=== PATIENT | female | born 1945 | race African-American/Black ===

== ENCOUNTER 2016-08-15 05:49 | Inpatient (IN) | payer BC, OTHER ==
[2016-08-02 14:12] LABS: INTERNATIONAL NORMAL RATI 1.1 UNITS (-); PROTIME (NOT ORD) 13.6 SEC (12.0-14.5)
[2016-08-02 14:13] LABS: BASOPHILS 0.5 %; BASOPHILS ABSOLUTE 0.05 10/3/uL (0.0-0.16); EOSINOPHILS 7.4 %; EOSINOPHILS ABSOLUTE 0.74 10/3/uL (0.0-0.53); HEMATOCRIT 40.9 % (36.0-48.0); IMMATURE GRANULOCYTES 0.2 %; IMMATURE GRANULOCYTES ABSOLUTE 0.02 10/3/uL (0.0-0.11); LYMPHOCYTES 28.1 %; MEAN CORPUS HGB CONC 34.2 g/dL (32.0-36.0); MEAN CORPUSCULAR HEMOGLOB 30.6 pg (26.0-34.0); MEAN CORPUSCULAR VOLUME 89.3 fL (80-100); MEAN PLATELET VOLUME 8.9 fL (9.2-13.0); MONOCYTES 6.3 %; MONOCYTES ABSOLUTE 0.63 10/3/uL (0.21-1.20); NEUTROPHILS 57.5 %; NEUTROPHILS ABSOLUTE 5.72 10/3/uL (2.02-8.40); PLATELET COUNT 300 10/3/uL (150-400); RBC DISTRIBUTION WIDTH 14.1 % (12.0-16.0); RED CELL COUNT 4.58 10/6/uL (4.0-5.6)
[2016-08-02 14:14] LABS: MANUAL DIFF NO %
[2016-08-02 14:16] LABS: A/G RATIO 0.8 (0.7-1.9); ALBUMIN 3.9 G/DL (3.5-5.0); ALKALINE PHOSPHATASE 81 U/L (45-117); CALCIUM, SERUM 8.9 MG/DL (8.5-10.4); CHLORIDE, SERUM 106 MMOL/L (96-112); CO2 (CARBON DIOXIDE) 27 MMOL/L (24-34); CREATININE 0.89 MG/DL (0.55-1.02); GFR AFRICAN AMERICAN 75 ML/MIN (>=60); GFR NON AFRICAN AMERICAN 65 ML/MIN (>=60); GLOBULIN 4.7 G/DL (2.5-4.1); GLUCOSE, SERUM 86 MG/DL (60-99); POTASSIUM, SERUM 3.5 MMOL/L (3.5-5.3); SGOT(AST) 20 U/L (5-40); SGPT(ALT) 18 U/L (5-65); SODIUM, SERUM 140 MMOL/L (135-148); TOTAL BILIRUBIN 0.4 MG/DL (0-1.2); TOTAL PROTEIN 8.6 G/DL (6.0-8.5)
[2016-08-02 14:17] LABS: BUN (BLOOD UREA NITROGEN) 15 MG/DL (6-23)
[2016-08-02 14:38] LABS: ASCORBIC ACID (UR NOT ORDER) NEG (NEG); BILIRUBIN, URINE NEGATIVE (NEG); KETONE, URINE NEGATIVE (NEG); LEUKOCYTE ESTERASE(NOT OR NEG (NEG); WBC (NOT ORDERED) (RFLEX) 1 (0-5)
--- NOTE | ~2016-08-15 | OP ---
Record Of Operation [facility] [address] [place]. [address] NAME: ELVIS SOLOMON : 41 STATUS : ADM IN PAT#: [id number] AGE: 70 ADM/REG DATE : 08/15/16 MR#: [id number] REPORT SERV DATE: 08/16/16 DICTATED BY: NITHIN FAITH DATE: 08/16/16 REPORT STATUS : Draft TRANSCRIBED BY: MODAdriana DATE: 08/16/16 DATE OF PROCEDURE: 08/15/2016 PREOPERATIVE DIAGNOSIS: Severe bilateral knee degenerative joint disease. POSTOPERATIVE DIAGNOSIS: Severe bilateral knee degenerative joint disease. OPERATION: Bilateral posterior stabilized total knee replacement, cemented. SIDE: Right and left. SIZE: See chart. ANESTHESIA: See chart. ESTIMATED BLOOD LOSS: About 10 mL in each knee. TOURNIQUET TIME: Approximately 1 hour and 10 minutes. COMPLICATIONS: None. SPECIMENS: Articular surfaces. PROCEDURE: The patient was appropriately identified and marked. The operative side agreed with the consent form and it was checked by all members of the surgical team. The patient was taken to the operating room and anesthesia was induced per the anesthesiologist. The patient was carefully transferred to the operating table without incident. The patient received appropriate prophylactic antibiotics and a Larson catheter was placed in the standard sterile technique. The patient was then carefully positioned, padded, prepped and draped in the normal sterile fashion. The operative leg had been appropriately identified and checked by all members of the operating team against the consent form and found to be the correct limb. The patient's lower extremity was then exsanguinated with an Jarett wrap and a tourniquet was inflated to 350 mmHg. Sharp dissection was carried out through a straight midline longitudinal incision and electrocautery through the fat. Sharp quad splitting approach was carried out between about the medial 10 percent of the tendon and the lateral 90 percent of the tendon and down around the medial aspect of the patella and then 1 cm medial to the tibial tubercle. The patella was carefully everted and the posterior fat pad was excised and gentle MCL elevation was carried out off the proximal medial tibia subperiosteally. IM guide was placed in the distal femur after using the appropriate drill. The distal femoral cutting guide was held with 2 pins and the distal cut made. Meniscal fragments and the ACL and the PCL were excised with electrocautery, carefully staying anterior to the posterior fat pad. The proximal tibial alignment guide was set appropriately and the proximal tibial cut made. Spacer block verified full extension with excellent mediolateral balance. Sizing guide was used to place 2 drill holes in the distal femur and the four-in-one cutting block was then placed, impacted and checked Record Of Operation [facility] [address] [place]. [address] NAME: ELVIS SOLOMON : 43 STATUS : ADM IN PAT#: [id number] AGE: 70 ADM/REG DATE : 08/15/16 MR#: [id number] REPORT SERV DATE: 08/16/16 DICTATED BY: NITHIN FAITH DATE: 08/16/16 REPORT STATUS : Draft TRANSCRIBED BY: ALDA DATE: 08/16/16 to be sure it would not notch with an emma wing and it was held with 2 pins. The anterior cut, posterior cut, anterior chamfer and posterior chamfer cuts were made. The pins were removed and the block was removed. A posterior release was carried out with a curved 3/4 inch osteotome staying right on the bone posteriorly. The box-cut guide was then placed, impacted and held with 2 pins and a reciprocating saw was used to cut out the box. With the trial components in place, there was excellent medial/lateral balance. The patella was then measured with a caliper, cut first with an oscillating saw and then reamed with a patella reamer. With the trial patella in place, there was excellent patellar tracking. Rotation was marked on the tibia and the tibia prepared with a drill and stamp chisel. All surfaces were then copiously irrigated with pulsatile lavage, carefully dried and then vacuum-mixed cement was pressurized with a cement gun in a doughy phase. The tibial component was placed, impacted and excess cement was removed. The cement was then pressurized in the femur and placed on the posterior runners of the femoral component, which was placed, impacted and excess cement removed and the knee was brought out into extension on a trial spacer. The cement was then pressurized in the patella. Patellar component was then placed, clamped and excess cement was removed. Once all cement was hardened, the knee was taken through range of motion. Further extruded cement was removed with a small osteotome. Then based on the trial inserts, we decided on the actual insert, which was placed in the standard fashion and held with a locking mechanism. The knee was then copiously irrigated and then closed in a layered fashion over a medium Hemovac drain superolaterally with interrupted #1 in the deep fascia, 2-0 subcutaneous and ren in the skin. The wounds were dressed sterilely and the tourniquet was deflated. After completion of the first knee and discussion with the anesthesiologist, all parameters were acceptable and we decided to proceed with the second knee. Same procedure as that dictated above was carried out on the contralateral knee. The contralateral leg was again appropriately identified and checked by all members of the operating team against the consent form and found to be the correct limb. The patient's lower extremity was then exsanguinated with an Jarett wrap and a tourniquet was inflated to 350 mmHg. Sharp dissection was carried out through a straight midline longitudinal incision and electrocautery through the fat. Sharp quad splitting approach was carried out between about the medial 10 percent of the tendon and the lateral 90 percent of the tendon and down around the medial aspect of the patella and then 1 cm medial to the tibial tubercle. The patella was carefully everted and the posterior fat pad was excised and gentle MCL elevation was carried out off the proximal medial tibia subperiosteally. IM guide was placed in the distal femur after using the appropriate drill. The distal femoral cutting guide was held with 2 pins and the distal cut made. Meniscal fragments and the ACL and the PCL were excised with electrocautery, carefully staying anterior to the posterior fat pad. The proximal tibial alignment guide was set appropriately and the proximal tibial cut made. Spacer block verified full extension with excellent mediolateral balance. Sizing guide was used to place 2 drill holes in the distal femur and the four-in-one cutting block was then placed, impacted and checked to be sure it would not notch with an emma wing and it was held with 2 pins. The anterior cut, posterior cut, anterior chamfer and posterior chamfer cuts were made. The pins were removed and the block was removed. A posterior release was carried out with a curved 3/4 inch osteotome staying right on the bone posteriorly. The box cut guide was then placed, impacted and held with 2 pins and a reciprocating saw was used to Record Of Operation [address] [place]. [address] NAME: ELVIS SOLOMON : 41 STATUS : ADM IN PAT#: [id number] AGE: 70 ADM/REG DATE : 08/15/16 MR#: [id number] REPORT SERV DATE: 08/16/16 DICTATED BY: NITHIN FAITH DATE: 08/16/16 REPORT STATUS : Draft TRANSCRIBED BY: MODAdriana DATE: 08/16/16 cut out the box. With the trial components in place, there was excellent medial/lateral balance. The patella was then measured with a caliper, cut first with an oscillating saw and then reamed with a patella reamer. With the trial patella in place, there was excellent patellar tracking. Rotation was marked on the tibia and the tibia prepared with a drill and stamp chisel. All surfaces were then copiously irrigated with pulsatile lavage, carefully dried and then vacuum-mixed cement was pressurized with a cement gun in a doughy phase. The tibial component was placed, impacted and excess cement was removed. The cement was then pressurized in the femur and placed on the posterior runners of the femoral component, which was placed, impacted and excess cement removed and the knee was brought out into extension on a trial spacer. The cement was then pressurized in the patella. Patellar component was then placed, clamped and excess cement was removed. Once all cement was hardened, the knee was taken through range of motion. Further extruded cement was removed with a small osteotome. Then based on the trial inserts, we decided on the actual insert, which was placed in the standard fashion and held with a locking mechanism. The knee was then copiously irrigated and then closed in a layered fashion over a medium Hemovac drain superolaterally with interrupted #1 in the deep fascia, 2-0 subcutaneous and ren in the skin. The wounds were dressed sterilely and the tourniquet was deflated. The patient was then awakened and taken to the postanesthesia care unit without incident. All counts were correct at the end of the case. WTB/MODL Eladio Faith M.D. / [id number] CC: Eladio Faith M.D. Hannah Madrid M.D.
--- NOTE | ~2016-08-15 | CN ---
Consultation Report [facility] [address] [place]. [address] NAME: ELVIS SOLOMON : 41 STATUS : ADM IN [facility]#: [id number] AGE: 70 ADM/REG DATE : 08/15/16 MR#: [id number] REPORT SERV DATE: 08/20/16 DICTATED BY: KATELYN WILLAMS DATE: 08/20/16 REPORT STATUS : Draft TRANSCRIBED BY: ALDA DATE: 08/20/16 NEUROLOGY CONSULTATION DATE OF CONSULTATION: 08/20/2016 REASON FOR CONSULTATION: Stroke. HISTORY: A 70-year-old -[place] female with an apparent history of hypertension, reflux, anxiety, sarcoidosis, osteoarthritis, who was admitted for scheduled bilateral knee replacement. The patient had a scheduled procedure on 08/15/2016 without complications. She has suffered from anxiety in the postoperative period and this evening apparently was using the commode and had a vagal type reaction and almost passed out. She then apparently became tearful and could not speak. She had a difficult time getting her words out and many of the words she made were unintelligible. She had a global weakness with no focal symptoms. There was no seizure activity, complaints of headache or vision changes. Head CT with CTA were performed, which were negative. We are consulted for further evaluation. PAST MEDICAL HISTORY: Osteoarthritis, history of sarcoidosis, reflux, hypertension, anxiety, depression, questionable history of stroke, and history of conversion reaction seen by Dr. Julien with similar symptoms. PAST SURGICAL HISTORY: Status post appendectomy, status post D and C, status post hysterectomy, and status post tubal ligation. MEDICATIONS: Listed on chart include Coumadin and aspirin here in the postoperative period. ALLERGIES: HYDROCODONE. FAMILY HISTORY: Brother with diabetes. Mother with heart disease. Father with hypertension. SOCIAL HISTORY: No tobacco use or illicit drug use. She drinks alcohol sparingly. REVIEW OF SYSTEMS: As above with complaints of knee pain. All other systems negative per chart review and per the patient responses. PHYSICAL EXAMINATION: VITAL SIGNS: Blood pressure 142/67, heart rate 96, respirations 20, temperature is 98.1, oxygen saturation 99%. GENERAL: Well-nourished, well-developed -[place] female, who appears tearful and anxious. NECK: Supple with no bruits. HEART: Regular. LUNGS: Clear to auscultation. Consultation Report [facility] [address] [place]. [address] NAME: ELVIS SOLOMON : 41 STATUS : ADM IN PAT#: [id number] AGE: 70 ADM/REG DATE : 08/15/16 MR#: [id number] REPORT SERV DATE: 08/20/16 DICTATED BY: KATELYN WILLAMS DATE: 08/20/16 REPORT STATUS : Draft TRANSCRIBED BY: ALDA DATE: 08/20/16 ABDOMEN: Benign with normoactive bowel sounds. EXTREMITIES: Revealed mild edema distally in the lower extremities, the patient is status post bilateral knee replacement. NEUROLOGIC EXAMINATION: MENTAL STATUS: The patient is awake and alert. She follows most simple commands. Sometimes there is a delay. Her speech is dysarthric, at times seemed unintelligible and at times her language is intelligible. She is able to repeat simple phrases. CRANIAL NERVES: Visual campos are full. Eye movements are full without nystagmus. No facial asymmetry. No tongue deviation. Corneals and gag intact. Funduscopic examination reveals sharp discs. MOTOR EXAM: She moves all extremities without asymmetry. There was no pronator drift. She could not completely perform power testing on a regular basis, but there was no npof-io-egiy asymmetry. She is able to raise both of her legs and dorsiflex her ankles without asymmetry. Diagnostics Tech is equal bilaterally, and again there was no pronator drift. Reflexes 2+ in the upper extremities, knees trace, ankles trace. Toes downgoing. Shelton's and tremor signs negative. SENSORY EXAM: Withdraws all four extremities without asymmetry. COORDINATION: Slow rapid alternating movements with avyjqu-vcgf-pqnuad. GAIT: Not tested. STUDIES: Head CT performed revealed no acute intracranial abnormalities. CTA of carotids and brain were negative. IMPRESSION: Episode of variable speech/language impairment of unclear etiology. I suspect that this may represent a conversion reaction. There is at least some significant nonphysiologic overlap. Differential diagnosis includes acute stroke. PLAN: 1. Continue aspirin and Coumadin. 2. I discussed extensively with the Hospitalist Service. The patient is not a candidate for tPA as there is no large vessel disease. The patient is status post bilateral knee replacement and is already on aspirin and Coumadin with an INR of 2. Additionally, this appears to be nonphysiologic in nature. 3. Check an MRI of the brain in the morning. 4. Close neurologic checks. 5. Further stroke workup if MRI positive. 6. Treat anxiety appropriately. 7. Neuro and hospitalist to follow. Thank you again for your confidence and referral. Time spent with this patient was over 1 hour. Consultation Report [facility] [address] [place]. [address] NAME: ELVIS SOLOMON : 41 STATUS : ADM IN PAT#: [id number] AGE: 70 ADM/REG DATE : 08/15/16 MR#: [id number] REPORT SERV DATE: 08/20/16 DICTATED BY: KATELYN WILLAMS DATE: 08/20/16 REPORT STATUS : Draft TRANSCRIBED BY: ALDA DATE: 08/20/16 YARON/ALDA Katelyn Willams M.D. Diplomate [place] [employer] of Sleep Medicine and Neurology / [id number] CC: Karli Whiteside M.D.
--- NOTE | ~2016-08-15 | DS ---
Discharge Summary [facility] [address] [place]. [address] NAME: ELVIS SOLOMON : 41 STATUS : DIS IN PAT#: [id number] AGE: 70 ADM/REG DATE : 08/15/16 MR#: [id number] REPORT SERV DATE: 08/31/16 DICTATED BY: NITHIN FAITH DATE: 08/30/16 REPORT STATUS : Draft TRANSCRIBED BY: MODAdriana DATE: 08/30/16 Data Collection from hospitalization DISCHARGE DIAGNOSES: 1. Severe bilateral knee degenerative joint disease. 2. Hypertension. 3. Osteoarthritis. 4. History of sarcoidosis. 5. Reflux. 6. Anxiety and depression. 7. Gastroesophageal reflux disease. 8. History of cerebrovascular accident. CONSULTATIONS: 1. Tripp Townsend M.D. 2. Manny Monroe MD. PROCEDURES PERFORMED: 1. Bilateral posterior stabilized total knee replacement, cemented, 08/15/2016. 2. CTA of the neck/brain - stroke protocol on 08/19/2016. 3. MRI of the brain on 08/21/2016. PATHOLOGY: Bone and soft tissue, right and left knee arthroplasty - degenerative changes, fatty bone marrow, papillary synovial hyperplasia. MEDICATIONS: Aspirin 81 mg daily, Colace 100 mg twice a day, ferrous sulfate 300 mg with breakfast and supper, Ativan 0.5 mg daily as needed, Theragran tablets one tablet with breakfast, Prilosec 40 mg twice a day, MiraLAX powder one packet daily, Altace 10 mg daily, Senokot two tablets at bedtime, Aldactone 25 mg daily, Desyrel 50 mg at bedtime, Coumadin 2.5 mg as instructed, Tylenol 650 mg every four hours as needed, Mylanta 30 mL as needed, Dulcolax 10-15 mg as needed, Dilaudid 2 mg every four hours as needed, milk of magnesia 30 mL as needed, Zofran 4 mg every four hours as needed, MiraLAX powder one packet twice a day as needed, Zantac 300 mg daily, and hydrochlorothiazide 12.5 mg daily. CONDITION AT DISCHARGE: Stable. DISPOSITION: The patient was discharged to [facility] on a full liquid diet with activities as instructed. HOSPITAL COURSE: This is a 70-year-old woman who has complained of yznfggif-fg-vcrjul constant bilateral hip pain. The patient also has severe bilateral knee degenerative joint disease. Treatment options were discussed and it was elected to proceed with surgical intervention. She was admitted to the hospital at this time for further evaluation and treatment. Upon admission, the patient was taken to the operating room where she underwent the above- mentioned procedure. She tolerated this well, and there were no complications. On postop day #1, she was evaluated by Occupational and Physical Therapy. She was in no acute Discharge Summary [address] [address] NAME: ELVIS SOLOMON : 41 STATUS : DIS IN PAT#: [id number] AGE: 70 ADM/REG DATE : 08/15/16 MR#: [id number] REPORT SERV DATE: 08/31/16 DICTATED BY: NITHIN FAITH DATE: 08/30/16 REPORT STATUS : Draft TRANSCRIBED BY: ALDA DATE: 08/30/16 distress. She was doing well. Blood pressure was controlled. She remained on ramipril and hydrochlorothiazide. Proton pump inhibitor was continued. Ativan was being given as needed for anxiety. Aspirin was continued. On 08/17/2016, she was up sitting in a bedside chair. She complained of dizziness with standing and walking. She did not want blood at the present time. MARSHAL hose were in place. On 08/18/2016, she has not had a bowel movement. She says that she has chronic constipation. She was encouraged to mobilize. Milk of magnesia and MiraLAX were provided. On 08/19/2016, she had undergone a KUB. She said that she had a good bowel movement after receiving an enema. She had increased anxiety and was tearful. We spoke with the patient about taking her Ativan. She continued to do well. She was seen by Dr. Manny Monroe. The patient had developed some stroke-like symptoms. The nurse was getting the patient up to the bedside commode when she became weak and presyncopal. When she was placed back in bed, she was noted to be weak, aphasic, and dysarthric. At the time of his exam, she had no focal deficits except for the dysarthria and aphasia. The patient has a history of a conversion disorder mimicking stroke-like symptoms. The patient was seen by Dr. Tripp Townsend. A CTA of the neck and brain-stroke protocol was performed. Apparently, the patient had become tearful and could not speak. She had a difficult time getting her words out and many of her words were unintelligible. She had global weakness with no focal symptoms. There was no seizure activity, complaints of headache or vision change. Head CT with CTA were negative. It was suspected that her symptoms may represent a conversion reaction. There is at least some significant nonphysiologic overlap. Differential diagnosis includes acute stroke. Aspirin and Coumadin were continued. The patient is not a candidate for tPA as there was no large vessel disease. This appeared to be nonphysiologic in nature. MRI of the brain was requested. Close neurologic checks would be performed. We would treat her anxiety appropriately. Blood pressure was stable. The patient was very emotional. An MRI of the brain was performed. There was no evidence of acute infarction or bleed. She did appear comfortable. Her dressings were clean, dry, and intact. The patient said she has had syncopal episodes since her knee surgery. She felt as if this was due to her nerves. White blood cell count was 15.5. Right hemiparesis was resolving. Aspirin and Coumadin were continued. A statin agent was added. Discharge instructions were given. Due to her improved and stable condition, she was discharged to [facility] with the above-stated instructions. Information collected by: Connie Venegas I submit the above information as my discharge summary. EDVIN/ALDA Eladio Faith M.D. / [id number] CC: Karli Whiteside M.D. Discharge Summary [address] [address] NAME: ELVIS SOLOMON : 41 STATUS : DIS IN PAT#: [id number] AGE: 70 ADM/REG DATE : 08/15/16 MR#: [id number] REPORT SERV DATE: 08/31/16 DICTATED BY: NITHIN FAITH DATE: 08/30/16 REPORT STATUS : Draft TRANSCRIBED BY: MODAdriana DATE: 08/30/16 [facility]. [facility]
[~2016-08-15 05:49] MED LIST: ALTACE10 MG PO; ASAB PO; ATV.5 PO; HYDROCHLOROT12.5 MG PO; MULTIPLE VITS; PRILOSEC40 MG PO; RANITIDINE300 MG PO; SPIRO25 PO; TRAZ50 PO
[2016-08-16 05:24] LABS: INTERNATIONAL NORMAL RATI 1.2 UNITS (-); PROTIME (NOT ORD) 14.6 SEC (12.0-14.5)
[2016-08-16 05:25] LABS: HEMATOCRIT 29.5 % (36.0-48.0); HEMOGLOBIN 10.2 g/dL (12.0-16.0)
[2016-08-16 05:29] LABS: BUN (BLOOD UREA NITROGEN) 16 MG/DL (6-23); CALCIUM, SERUM 9.2 MG/DL (8.5-10.4); CHLORIDE, SERUM 105 MMOL/L (96-112); CO2 (CARBON DIOXIDE) 28 MMOL/L (24-34); CREATININE 0.84 MG/DL (0.55-1.02); GFR AFRICAN AMERICAN 80 ML/MIN (>=60); GFR NON AFRICAN AMERICAN 69 ML/MIN (>=60); SODIUM, SERUM 141 MMOL/L (135-148)
[2016-08-16 05:30] LABS: GLUCOSE, SERUM 131 MG/DL (60-99); POTASSIUM, SERUM 4.5 MMOL/L (3.5-5.3)
[2016-08-17 03:47] LABS: HEMATOCRIT 24.2 % (36.0-48.0); HEMOGLOBIN 8.3 g/dL (12.0-16.0)
[2016-08-17 03:53] LABS: INTERNATIONAL NORMAL RATI 1.3 UNITS (-); PROTIME (NOT ORD) 16.2 SEC (12.0-14.5)
[2016-08-18 05:22] LABS: HEMATOCRIT 23.9 % (36.0-48.0); HEMOGLOBIN 8.2 g/dL (12.0-16.0)
[2016-08-18 05:29] LABS: INTERNATIONAL NORMAL RATI 1.6 UNITS (-)
[2016-08-18 05:32] LABS: PROTIME (NOT ORD) 18.8 SEC (12.0-14.5)
[2016-08-18 05:34] LABS: BUN (BLOOD UREA NITROGEN) 17 MG/DL (6-23); CALCIUM, SERUM 8.6 MG/DL (8.5-10.4); CHLORIDE, SERUM 105 MMOL/L (96-112); CO2 (CARBON DIOXIDE) 29 MMOL/L (24-34); CREATININE 0.82 MG/DL (0.55-1.02); GFR AFRICAN AMERICAN 83 ML/MIN (>=60); GFR NON AFRICAN AMERICAN 71 ML/MIN (>=60); GLUCOSE, SERUM 98 MG/DL (60-99); POTASSIUM, SERUM 4.3 MMOL/L (3.5-5.3); SODIUM, SERUM 140 MMOL/L (135-148)
[2016-08-19 05:28] LABS: INTERNATIONAL NORMAL RATI 1.8 UNITS (-); PROTIME (NOT ORD) 21.1 SEC (12.0-14.5)
[2016-08-20 00:04] LABS: BASOPHILS 0.2 %; BASOPHILS ABSOLUTE 0.04 10/3/uL (0.0-0.16); EOSINOPHILS 4.9 %; EOSINOPHILS ABSOLUTE 0.85 10/3/uL (0.0-0.53); HEMATOCRIT 25.1 % (36.0-48.0); HEMOGLOBIN 8.7 g/dL (12.0-16.0); IMMATURE GRANULOCYTES 0.5 %; IMMATURE GRANULOCYTES ABSOLUTE 0.09 10/3/uL (0.0-0.11); LYMPHOCYTES 25.5 %; LYMPHOCYTES ABSOLUTE 4.39 10/3/uL (0.67-4.30); MANUAL DIFF NO %; MEAN CORPUS HGB CONC 34.7 g/dL (32.0-36.0); MEAN CORPUSCULAR VOLUME 89.3 fL (80-100); MEAN PLATELET VOLUME 8.5 fL (9.2-13.0); MONOCYTES 9.2 %; MONOCYTES ABSOLUTE 1.59 10/3/uL (0.21-1.20); NEUTROPHILS 59.7 %; NEUTROPHILS ABSOLUTE 10.25 10/3/uL (2.02-8.40); PLATELET COUNT 334 10/3/uL (150-400); RBC DISTRIBUTION WIDTH 14.5 % (12.0-16.0); RED CELL COUNT 2.81 10/6/uL (4.0-5.6); WHITE BLOOD CELLS 17.2 10/3/uL (4.5-10.5)
[2016-08-20 00:14] LABS: PROTIME (NOT ORD) 22.7 SEC (12.0-14.5)
[2016-08-20 00:22] LABS: A/G RATIO 0.8 (0.7-1.9); ALBUMIN 3.1 G/DL (3.5-5.0); ALKALINE PHOSPHATASE 57 U/L (45-117); BUN (BLOOD UREA NITROGEN) 11 MG/DL (6-23); CALCIUM, SERUM 8.8 MG/DL (8.5-10.4); CHLORIDE, SERUM 100 MMOL/L (96-112); CO2 (CARBON DIOXIDE) 29 MMOL/L (24-34); CREATININE 0.71 MG/DL (0.55-1.02); GFR AFRICAN AMERICAN 99 ML/MIN (>=60); GFR NON AFRICAN AMERICAN 85 ML/MIN (>=60); GLOBULIN 3.8 G/DL (2.5-4.1); GLUCOSE, SERUM 139 MG/DL (60-99); POTASSIUM, SERUM 3.9 MMOL/L (3.5-5.3); SGOT(AST) 15 U/L (5-40); SGPT(ALT) 16 U/L (5-65); SODIUM, SERUM 135 MMOL/L (135-148); TOTAL BILIRUBIN 0.6 MG/DL (0-1.2); TOTAL PROTEIN 6.9 G/DL (6.0-8.5); TROPONIN I <0.02 NG/ML (<0.05)
[2016-08-20 06:26] LABS: PROTIME (NOT ORD) 22.7 SEC (12.0-14.5)
[2016-08-20 06:33] LABS: HEMATOCRIT 26.4 % (36.0-48.0); HEMOGLOBIN 8.9 g/dL (12.0-16.0)
[2016-08-21 06:18] LABS: BASOPHILS 0.2 %; BASOPHILS ABSOLUTE 0.03 10/3/uL (0.0-0.16); EOSINOPHILS 3.2 %; HEMOGLOBIN 8.6 g/dL (12.0-16.0); IMMATURE GRANULOCYTES 0.6 %; LYMPHOCYTES 24.7 %; LYMPHOCYTES ABSOLUTE 3.83 10/3/uL (0.67-4.30); MEAN CORPUS HGB CONC 33.1 g/dL (32.0-36.0); MEAN CORPUSCULAR HEMOGLOB 30.1 pg (26.0-34.0); MEAN CORPUSCULAR VOLUME 90.9 fL (80-100); MEAN PLATELET VOLUME 8.4 fL (9.2-13.0); MONOCYTES 10.6 %; MONOCYTES ABSOLUTE 1.64 10/3/uL (0.21-1.20); NEUTROPHILS 60.7 %; PLATELET COUNT 392 10/3/uL (150-400); RBC DISTRIBUTION WIDTH 14.9 % (12.0-16.0); RED CELL COUNT 2.86 10/6/uL (4.0-5.6); WHITE BLOOD CELLS 15.5 10/3/uL (4.5-10.5)
[2016-08-21 06:21] LABS: INTERNATIONAL NORMAL RATI 2.3 UNITS (-); PROTIME (NOT ORD) 25.4 SEC (12.0-14.5)
[2016-08-21 06:23] LABS: MANUAL DIFF NO %
[2016-08-21 06:35] LABS: BUN (BLOOD UREA NITROGEN) 9 MG/DL (6-23); CALCIUM, SERUM 9.2 MG/DL (8.5-10.4); CHLORIDE, SERUM 101 MMOL/L (96-112); CO2 (CARBON DIOXIDE) 32 MMOL/L (24-34); CREATININE 0.71 MG/DL (0.55-1.02); GFR AFRICAN AMERICAN 99 ML/MIN (>=60); GFR NON AFRICAN AMERICAN 85 ML/MIN (>=60); POTASSIUM, SERUM 4.5 MMOL/L (3.5-5.3); SODIUM, SERUM 137 MMOL/L (135-148)
[2016-08-21 06:36] LABS: GLUCOSE, SERUM 110 MG/DL (60-99)
[2016-08-21 07:04] LABS: PROCALCITONIN 0.08 ng/mL (<0.5)
== END 2016-08-21 19:33 | DRG 462 ==
LOC: SDC/OF 05:49 → PACU 10:47 → 3SO 11:48 → 1SO 08-20 02:31
PROVIDERS: Nurse Practitioner; Nurse Practitioner Acute Care; Specialist
PROC: 0SRC0J9 Replacement of Right Knee Joint with Synthetic Substitute, Cemented, Open Approach (ICD-10-PCS; 2016-08-15)
PROC: 3E0T3CZ (ICD-10-PCS; 2016-08-15)
PROC: 0SRD0J9 Replacement of Left Knee Joint with Synthetic Substitute, Cemented, Open Approach (ICD-10-PCS; principal; 2016-08-15 07:45)
DX: M17.0 Bilateral primary osteoarthritis of knee (principal); D62 Acute posthemorrhagic anemia; G81.91 Hemiplegia, unspecified affecting right dominant side; R47.01 Aphasia; I10 Essential (primary) hypertension; K59.09 Other constipation; R47.1 Dysarthria and anarthria; E66.9 Obesity, unspecified; D86.9 Sarcoidosis, unspecified; K21.9 Gastro-esophageal reflux disease without esophagitis; F41.9 Anxiety disorder, unspecified; Z68.30 Body mass index [BMI] 30.0-30.9, adult; Z79.82 Long term (current) use of aspirin; Z79.899 Other long term (current) drug therapy; Z86.73 Personal history of transient ischemic attack (TIA), and cerebral infarction without residual deficits; Z88.5 Allergy status to narcotic agent
CPT/HCPCS: 36415; 70450; 70496; 70498; 70551-52; 71010; 71020; 74000; 80048; 80053; 81001; 82962; 84145; 84484; 85014; 85018; 85025; 85610; 86850; 86900; 86901; 87641; 88305; 88311; 93005; 97110-GP; 97116-GP; 97162-GP; 97164-GP; 97165-GO; A9270-GY; C1776; J0690; J1885; J2250; J2274; J2370; J2405; J2795; J3010; Q9967